=== PATIENT | female | born 1985 | race Caucasian/White ===

== ENCOUNTER 2017-06-15 17:40 | Emergency (ER) | payer BC ==
[~2017-06-15] VITALS: Ht 172.7 cm; Wt 117.9 kg
[2017-06-15] MEDS ORDERED: ALBUTEROL SULFATE 2.5 MG/3 ML NEBU NEB ONE (19:00)
[2017-06-15] MEDS ORDERED: predniSONE 10 MG TABLET PO ONE (19:00)
[2017-06-15] MEDS ORDERED: IPRATROPIUM BROMIDE 0.5 MG/2.5 ML NEBU NEB ONE (19:00)
[2017-06-15] MEDS ORDERED: ACETAMINOPHEN ES 500 MG TABLET PO ONE (19:00)
[2017-06-15] MEDS ORDERED: predniSONE 50 MG TABLET ONE (19:13)
[2017-06-15] MEDS ORDERED: predniSONE 10 MG TABLET ONE (19:13)
[2017-06-15] MEDS ORDERED: ACETAMINOPHEN ES 500 MG TABLET ONE (19:13)
--- NOTE | 2017-06-15 19:14 | NUR ---
Received report from HERIBERTO Mata. Assumed care of pt at this time. Pt receiving cont breathing treatment, resting in position of comfort for self.
[2017-06-15] MEDS ORDERED: IPRATROPIUM BROMIDE 0.5 MG/2.5 ML NEBU ONE (19:20)
[2017-06-15] MEDS ORDERED: ALBUTEROL SULFATE 2.5 MG/3 ML NEBU ONE (19:20)
--- NOTE | 2017-06-15 19:59 | NUR ---
IV established. Fluid bolus infusing freely to gravity. Pt resting in position of comfort for self. Breathing treatment cont.
[2017-06-15] MEDS ORDERED: IV NORMAL SALINE 1000 ML BAG IV ONE (20:00)
[2017-06-15 20:08] LABS: BASOPHILS % (AUTO) 0.4 % (0.0-2.0); EOSINOPHILS % (AUTO) 0.4 % (0.0-7.0); LYMPHOCYTES # (AUTO) 0.9 K/UL (0.8-4.8); LYMPHOCYTES % (AUTO) 8.8 % (20.5-51.5); MEAN CORPUSCULAR HEMOGLOBIN 24.6 UUG (27.0-31.0); MEAN CORPUSCULAR HGB CONC 32 g/dL (32.0-37.0); MEAN CORPUSCULAR VOLUME 77.4 FL (81.0-99.0); MONOCYTES # (AUTO) 0.7 K/UL (0.1-1.30); MONOCYTES % (AUTO) 6.5 % (0.0-11.0); NEUTROPHILS % (AUTO) 83.9 % (38.5-71.5); PLATELET COUNT (AUTO) 288 K/UL (150-450); RED BLOOD CELL COUNT(AUTO) 5.68 MIL/UL (4.2-5.4); WHITE BLOOD COUNT (AUTO) 10.6 K/UL (4.0-11.2)
[2017-06-15 20:19] LABS: POTASSIUM 3.9 mmol/L (3.5-5.1)
[2017-06-15 21:50] LABS: BILIRUBIN,DIRECT 0.1 mg/dL (0.0-0.2); BILIRUBIN,TOTAL 0.5 mg/dL (0.2-1.0)
--- NOTE | 2017-06-15 22:00 | NUR ---
Pt stable for discharge per Dr. Staley. IV dc'd, catheter intact. Drsg applied. No problems noted to site. Pt given ACI. Pt verbalized understanding of dc instructions. Pt ambulated out of ER with steady gait.
[2017-06-16 01:41] VITALS: BP 125/71
== END 2017-06-15 22:00 | disposition home or self-care (01) ==
LOC: ER 17:41
DX: J09.X2 Influenza due to identified novel influenza A virus with other respiratory manifestations (principal); J20.9 Acute bronchitis, unspecified
CPT/HCPCS: 36415; 71010; 80048; 82247; 82248; 83605 ×2; 85025; 87040 ×2; 94644; 96360; 96361; 99285; A4663; J3590; J7030; J7512 ×2